=== PATIENT | male | born 1975 | race Caucasian/White ===

== ENCOUNTER 2025-02-24 17:45 | Emergency (ER) | payer BC ==
[~2025-02-24] VITALS: Ht 172.7 cm; Wt 81.2 kg
[2025-02-24] MEDS: methocarbamoL 750 MG TAB PO ONE ×2 (20:18→20:45)
[2025-02-24] MEDS: IBUPROFEN 800 MG TAB PO ONE (20:18)
[2025-02-24] MEDS ORDERED: METH-1165 PO (20:52)
[2025-02-24 20:53] VITALS: BP 128/69; TEMP 97.4; O2SAT 100
== END 2025-02-24 21:01 | disposition home or self-care (01) ==
LOC: M ED 17:45 → EDBD 17:45 → M ED 21:01
DX: M54.6 Pain in thoracic spine (principal)